=== PATIENT | male | born 1955 | race Caucasian/White ===

== ENCOUNTER 2018-10-29 12:39 | Outpatient (REF) | payer MEDICARE, SELFPAY ==
[2018-10-29 13:38] LABS: ALT 54 U/L (12-78); AST 23 U/L (15-37); Albumin 4.1 g/dL (3.4-5.0); Alkaline Phosphatase 62 U/L (46-116); Anion Gap 12.8 mmol/L (3-11); BUN 17 mg/dL (7-18); Bilirubin, Total 0.6 mg/dL (0.2-1.0); CO2 23.2 mmol/L (21.0-32.0); CREATININE 0.99 mg/dL (0.70-1.30); Calculated LDL 71 mg/dL; Chloride 103 mmol/L (98-107); Cholesterol 138 mg/dL (50-200); Glucose 158 mg/dL (70-100); HDL Cholesterol 46 mg/dL (40-60); Potassium 4.2 mmol/L (3.5-5.1); Sodium 139 mmol/L (136-145); Triglyceride 108 mg/dL (30-150)
[2018-10-29 14:00] LABS: Vitamin D 25 Total 41.9 ng/ml (30-100)
== END 2018-10-29 12:59 ==
LOC: NCHCN 12:39
PROVIDERS: PCP Family Medicine; Visit Provider Nurse Practitioner Family
DX: E78.5 Hyperlipidemia, unspecified (principal); I10 Essential (primary) hypertension; E55.9 Vitamin D deficiency, unspecified
CPT/HCPCS: 80053; 80061; 82306; 83721

== ENCOUNTER 2020-01-03 08:43 | Outpatient (REF) | payer MEDICARE, SELFPAY ==
[2020-01-03 19:24] LABS: Hemoglobin A1C 6.3 % (<5.7)
[2020-01-03 19:26] LABS: Anion Gap 10.2 mmol/L (3-11); BUN 14 mg/dL (7-18); CO2 25.8 mmol/L (21.0-32.0); CREATININE 0.95 mg/dL (0.70-1.30); Calcium 9.4 mg/dL (8.5-10.1); Calculated LDL 64 mg/dL (<100); Chloride 105 mmol/L (98-107); Cholesterol 122 mg/dL (<200); Glucose 158 mg/dL (74-106); HDL Cholesterol 48 mg/dL (40-60); Potassium 4.3 mmol/L (3.5-5.1); Sodium 141 mmol/L (136-145); Triglyceride 50 mg/dL (<150)
== END 2020-01-03 09:03 ==
LOC: NCHCN 08:43
PROVIDERS: PCP Family Medicine; Visit Provider Nurse Practitioner Family
DX: E11.9 Type 2 diabetes mellitus without complications (principal); I10 Essential (primary) hypertension; E78.5 Hyperlipidemia, unspecified
CPT/HCPCS: 80048; 80061; 83036

== ENCOUNTER 2021-04-22 10:43 | Outpatient (REF) | payer MEDICARE, SELFPAY ==
--- OUTSIDE RECORDS SUMMARY | 2021-04-22 10:44 | XMS_ITS ---
:1955 Author Care Team Providers Name Role Phone DYLAN GREEN JOSE MANUEL Primary Care Provider [phone] Allergies None recorded. Medications Name Status Start Date Stop Date ? ? atorvastatin 20 mg tablet Active ? Not av ailable DILT-XR 180 mg capsule, extended release Active ? Not available lisinopril 40 mg tablet Active ? Not avai lable metformin 500 mg tablet Active ? Not avai lable Problems Name Status Onset Date Source ? Obstructive Sleep Apnea Syndrome Active ? History Periodic Limb Movement Disorder Active ? History Procedures None recorded. Results Lab Results None recorded. Past Encounters None recorded. Social History Tobacco Smoking Status Never Smoker Vaccine List None recorded. Plan of Care Reminders Provider Appointments None ? ? recorded. Lab None ? ? recorded. Referral None ? ? recorded. Procedures None ? ? recorded. Surgeries None ? ? recorded. Imaging None ? ? recorded. Vitals 03/07/2019 01:45PM Office 30 Height Weight BMI Blood Pressure 182.88 cm 123.24 kg 36.8 kg/m2 124/72 mm[Hg] 05/19/2016 Height Weight Blood Pressure 180.34 cm 130.63 kg 136/84 mm[Hg] 02/25/2016 Height Weight Blood Pressure 180.34 cm 128.99 kg 138/80 mm[Hg]
[2021-04-22 14:01] LABS: Abs Immature Grans 0.03 10^3/uL (0.0-0.06); Absolute Basophil Count 0.02 10^3/uL (0.0-0.2); Absolute Eosinophil Count 0.19 10^3/uL (0.0-0.7); Absolute Lymphocyte Count 1.51 10^3/uL (1.2-3.4); Absolute Monocyte Count 0.67 10^3/uL (0.1-0.8); Absolute Neutrophil Count 4.15 10^3/uL (1.2-6.7); Basophils % 0.3; Eosinophils % 2.9; HCT 47.9 % (40.0-50.0); HGB 15.6 g/dL (13.5-17.5); Immature Grans % 0.5; MCH 29.1 pg (27.0-33.0); MCHC 32.6 % (32.0-36.0); MCV 89.4 fL (80-95); MPV 12.3 fL (8.0-11.0); Monocytes % 10.2; Neutrophils % 63.1; Nucleated RBC 0 %; Platelet Count 222 10^3/uL (130-400); RBC 5.36 10^6/uL (4.36-5.78); RDW 12.2 % (11.8-14.1); RDW-SD 39.8 fL; WBC 6.57 10^3/uL (4.4-10.8)
[2021-04-22 14:14] LABS: ALT 83 U/L (16-63); AST 41 U/L (15-37); Albumin 4.2 g/dL (3.4-5.0); Alkaline Phosphatase 67 U/L (46-116); Anion Gap 13.9 mmol/L (3-11); BUN 14 mg/dL (7-18); Bilirubin, Total 0.7 mg/dL (0.2-1.0); CO2 22.1 mmol/L (21.0-32.0); Calculated LDL 68 mg/dL (<100); Chloride 103 mmol/L (98-107); Cholesterol 127 mg/dL (<200); Glucose 199 mg/dL (74-106); HDL Cholesterol 46 mg/dL (40-60); Potassium 4.6 mmol/L (3.5-5.1); Sodium 139 mmol/L (136-145); Triglyceride 68 mg/dL (<150)
[2021-04-22 14:21] LABS: Hemoglobin A1C 7.3 % (<5.7)
== END 2021-04-22 10:44 | disposition home or self-care (01) ==
LOC: NCHCN 10:43
PROVIDERS: PCP Family Medicine; Visit Provider Nurse Practitioner Family
DX: I10 Essential (primary) hypertension (principal); E11.9 Type 2 diabetes mellitus without complications; E78.5 Hyperlipidemia, unspecified
CPT/HCPCS: 80053; 80061; 83036; 85025

== ENCOUNTER → 2022-02-01 13:22 | Outpatient (BNVA) | payer MEDICARE, SELFPAY | PROVIDERS: PCP Nurse Practitioner Family; Referring Provider Nurse Practitioner Family; Visit Provider Surgery | DX: Z12.11 Encounter for screening for malignant neoplasm of colon (principal); D12.6 Benign neoplasm of colon, unspecified | CPT/HCPCS: 99242 ==

== ENCOUNTER 2022-02-14 10:17 | Day surgery (SDC) | payer MEDICARE, SELFPAY ==
--- NOTE | 2022-02-14 06:41 | W.COLOREPORT ---
Date of service: 02/14/22 Time of Service: 12:03 Colonoscopy Report Date of procedure: 02/14/22 Pre-op diagnosis general: colon cancer screening Post-op diagnosis procedure note: other (polyps and mild diverticulosis) Procedure: Colonoscopy with polypectomy Surgeon: Lesvia De Luna Anesthesia Type: General:No Airway Estimated blood loss (mL): 3 Pathology: other (ascending, transverse, descending and sigmoid polyps) Complications: None Disposition: same day Indications: Pt seen at the request of PCP regarding colon cancer screening. Pt has? had colon cancer screening before.? They denies problems with constipation or diarrhea.? They deny any pain or difficulty with bowel movements, or rectal bleeding.? There is no family history of any colon cancer.? Pt has not had any unexplained weight loss.? Their appetite is good.? ?They deny heart, lung, or kidney problems. He has been having H/I since he started the [employer].? BS are still running high.? They have not had any prior colo-rectal surgery.? The patient? has not had a prior prostate Sx.? .? They deny any problems with anesthesia in the past. Prep: Miralax/Dulcolax Procedure Start Time: 12:03 Procedure End Time: 12:25 Retraction Time: 13 minutes Findings: 4 small polyps mild sigmoid diverticulosis Procedure Description: After informed consent was obtained the patient was taken to the procedure room and placed in a left decubitous position. Monitors were applied and a time out was done. The patients name, date of , procedure, allergies to medications and metal in their body was reviewed. The patient was then sedated. Once sedated and comfortable a rectal exam was done. External exam was normal. Internal exam revealed a normal sphincter tone and no palpable masses. I was unable to feel the prostate. The scope was then introduced and retro-flexed. No internal hemorrhoids, polyps or masses were identified on retro-flexion. The scope was then advanced to the cecum without difficulty. The ileocecal vlave and appendiceal orifice were identified. The prep was adequate. The scope was then slowly retracted over 13 minutes back into the rectum. Polyps were removed with cold forceps in the ascending, descending and sigmoid colon and with a cold snare in the Transverse colon. There was mild sigmoid diverticulosis noted. The scope was removed and the patient was woken up and taken back to Same day surgery in stable condition. The patient tolerated the procedure well and there were no immediate complications.
--- NOTE | 2022-02-14 06:42 | W.PM.DSUDISC ---
Date of service: 02/14/22 Time of Service: 12:03 Discharge Plan Disposition Patient Disposition: HOME Condition: Good Discharge Details Reason For Visit: Colon Cancer Screening Attending Provider: Lesvia De Luna Primary Care Provider: Rupa Amador Home Meds and New Rx's Prescriptions: Continued Januvia 100 mg tablet 100 mg PO DAILY sildenafil 100 mg tablet 100 mg PO DAILY PRN Rx Instructions: administer 30 minutes to 4 hours before activity metformin 500 mg tablet 1,000 mg PO BID diltiazem HCl [DILT-XR] 180 mg capsule,ext.rel 24h degradable 180 mg PO DAILY atorvastatin 20 mg tablet 20 mg PO QHS lisinopril 40 mg tablet 40 mg PO DAILY cholecalciferol (vitamin D3) 50 mcg (2,000 unit) capsule 50 mcg PO DAILY aspirin 81 mg tablet,delayed release (DR/EC) 81 mg PO DAILY Discontinued bisacodyl [Dulcolax (bisacodyl)] 5 mg tablet,delayed release (DR/EC) 5 mg PO ONCE Qty: 4 0RF Rx Instructions: Take according to provider's instructions for colonoscopy prep. polyethylene glycol 3350 17 gram/dose powder 17 g PO ONCE Qty: 238 0RF Rx Instructions: To be taken as directed by prescriber's office for colonoscopy prep. Discharge Instructions Instructions: Colorectal Polyps (DC), Diverticulosis (DC) Additional Instructions: Findings: mild diverticulosis 4 polyps Follow up: 3-5 years Please call if you develop: fevers >101.5 Nausea or Vomiting Abdominal pain that is not transient Rectal bleeding that is more then a tbsp A hard abdomen and inability to pass gas DAY SURGERY UNIT POST ENDOSCOPY INSTRUCTIONS Instructions for everyone who is given Anesthesia: For your safety, please do the following for the next 24 Hours: a. Do not drive or operate dangerous equipment b. Do not drink alcohol beverages or use any recreational drugs for the first 24 hours or while taking pain medications. The medications in your body may have a reaction that can be dangerous. c. Do not make any important decisions or sign any important papers 1. Generally there are no restrictions on your activity after a day or so has gone by, but you may feel a bit fatigued for a few days. 2. After you arrive home you may have a light meal and return to a normal diet as you can tolerate it without feeling sick to your stomach. 3. After surgery, you may feel pain or discomfort. This should be only transient, but if it persists please contact your doctor. 4. If there are any questions regarding the findings of your procedure, please feel free to contact your doctor. 6. If you are unable to contact your doctor with a problem, contact the hospital at [phone]. 7. Continue all your regular medications unless directed otherwise. I understand the above instructions and have no questions. Signature of Patient or Responsible Adult Escort Date/Time Name of Responsible Adult Escort Signature of Nurse Date/Time Activity:: Activity as Tolerated Equipment/Supplies:: No Equipment Needed Diet:: high fiber
[2022-02-14 11:22] VITALS: BP 143/77; PULSE 91; RESP 16; TEMP 36.6; O2SAT 96
[2022-02-14] MEDS: Lactated Ringers 1,000 ML 80 ML IV (11:40)
--- NOTE | 2022-02-14 11:49 | ANES.PREOP_ITS ---
General Info Date of Service Date Performed: 02/14/22 Height: 6 ft Weight: 123.2 kg Body Mass Index (BMI): 36.8 Surgical Procedure: Operation Date: 02/14/22 12:05 Proposed Procedure Side Surgeon easton De Luna MD Meds Allergies and Home Medications Allergies Allergy/AdvReac Type Severity Reaction Status Date / Time No Known Allergies Allergy Unverified 02/14/22 11:19 Home Medication Medication Instructions Recorded aspirin 81 mg tablet,delayed 81 mg PO DAILY 05/13/21 release atorvastatin 20 mg tablet 20 mg PO QHS 05/13/21 cholecalciferol (vitamin D3) 50 50 mcg PO DAILY 05/13/21 mcg (2,000 unit) capsule diltiazem HCl 180 mg 180 mg PO DAILY 05/13/21 capsule,extended release 24 hr, controlled (DILT-XR) lisinopril 40 mg tablet 40 mg PO DAILY 05/13/21 metformin 500 mg tablet 1,000 mg PO BID 05/13/21 bisacodyl 5 mg tablet,delayed 5 mg PO ONCE #4 tabs 02/01/22 release (Dulcolax (bisacodyl)) polyethylene glycol 3350 17 17 g PO ONCE #238 grams 02/01/22 gram/dose oral powder sildenafil 100 mg tablet 100 mg PO DAILY PRN 02/01/22 sitagliptin phosphate 100 mg 100 mg PO DAILY 02/01/22 tablet (Januvia) Current Visit Medications: Current Medications Generic Name Dose Route Start Last Admin Trade Name Freq PRN Reason Stop Dose Admin Hyoscyamine Sulfate 0.125 mg 02/14/22 06:42 Hyoscyamine 0.125 Mg Sl/Oral/Chew SL DIRECTED PRN Ringer's Solution 1,000 mls @ 80 mls/hr 02/14/22 06:00 02/14/22 11:40 IV 03/13/22 23:59 80 mls/hr INFUSION IZZY Administration IV Miscellaneous Supplies 1 each 02/14/22 06:00 Iv Access IV 03/13/22 23:59 DIRECTED IZZY Ondansetron HCl 4 mg 02/14/22 06:42 Ondansetron 4 Mg/2 Ml Vial IVP Q4H PRN PRN Nausea / Vomiting Sodium Chloride 0 ml 02/14/22 06:00 Normal Saline Flush 10 Ml Syr IV 03/13/22 23:59 PRN PRN Sodium Chloride 0 ml 02/14/22 06:00 Normal Saline 10 Ml Vial IJ 03/13/22 23:59 DIRECTED PRN Sterile Water 0 ml 02/14/22 06:00 Water,Injection,Sterile 10 Ml Vial IJ 03/13/22 23:59 DIRECTED PRN PFSH Active Problems Active Problems: Problem Status Onset Code Screening for colon cancer Z12.11 Hypertension I10 JARETH (obstructive sleep apnea) G47.33 Type 2 diabetes mellitus E11.9 Liver cirrhosis secondary to nonalcoholic steatohepatitis (WANG) K75.81, K74.60 Elevated LFTs R79.89 Medical History Medical History Hyperlipidemia Skin lesion Tubular adenoma of colon Vitamin D deficiency Surgical History Surgical History Hx of colonoscopy Tobacco Smoking/Tobacco Use Status: Never Alcohol Alcohol Intake: current Alcohol intake frequency: a few times a month Alcohol ty pe: beer Substance Use Substance use: Never Substance use type: does not use Vital Signs and Lab Results Vital Signs Most Recent Vital Signs in EMR: Most Recent Vital Signs Temp Pulse Resp BP Pulse Ox 36.6 C 91 H 16 143/77 H 96 02/14/22 11:22 02/14/22 11:22 02/14/22 11:22 02/14/22 11:22 02/14/22 11:22 Lab Results Blood Type / Crossmatch: No Data to Display Complete Blood Count: No Data to Display Complete Metabolic Panel: No Data to Display Liver Function Panel: No Data to Display Coagulation Panel: No Data to Display Cardiac Panel: No Data to Display Arterial Blood Gas: No Data to Display Venous Blood Gas: No Data to Display Pancreas Panel: No Data to Display Thyroid Panel: No Data to Display Infectious Disease: No Data to Display Blood Cultures: No Data to Display Toxicology Panel: No Data to Display Anesthesia Assessment and Plan Anesthesia History Personal History: No History of Anesthesia Complications Family History: No Family History of Anesthesia Complications Exercise Tolerance Exercise Tolerance: Metabolic Equivalents>4 Pertinent Negatives Pertinent Negatives: No Symptoms of GERD (Well controlled with medication ), No Major Cardiovascular Symptoms or Complaints, No Major Pulmonary Symptoms or Complaints (JARETH uses CPAP) and No History of CVA/TIA Cardiac & Pulmonary Exam Cardiac Exam: Normal S1/S2 Heart Sounds Pulmonary Exam: Clear Bilateral Breath Sounds Implantable Cardiac Device Does patient have a Pacemaker or an ICD?: No Airway Exam Known Difficult Airway: No Mallampati Class: 1 Mouth Opening: Normal (> 3cm) Thyromental Distance: Greater than 3 cm Neck Range of Motion: Full ROM Neck Circumference: Normal Teeth Condition: Normal Dentition Airway Comments: #21 rebuilt ASA Classification ASA Score: ASA 2 Emergency Case?: No NPO Status NPO Status: NPO Clears >2 hours, Solids >8 hours Anesthesia Plan Resuscitation Status: Full Code Anesthesia Technique: General Anesthesia Airway Planned: Natural Airway Monitors Used: Standard Monitors
[2022-02-14 11:53] VITALS: BMI 36.8
--- NOTE | 2022-02-14 12:05 | BOWEL_PTH ---
PATIENT: Bernardino Kaba LOC: [facility] U#:[id number] AGE/SX: 66/M ROOM: RE02/14/[address]: Lesvia De Luna MD : 1955 BED: DIS: 02/14/2022 SPEC #: [id number] RECD: 02/14/22 13:18 STATUS: SELENA RE #: [id number] KATE: 02/14/22 12:[address]: Lesvia De Luna DEPT: Surgical Specimen RECD BY: Mary Parra ENTERED: 02/14/22 13:19 SP TYPE: Bowel OTHR DR: Rupa Aamdor Tissues: 1 - BIOPSY BOWEL 2 - BIOPSY BOWEL 3 - BIOPSY BOWEL 4 - BIOPSY BOWEL Procedures: GROSS AND MICRO LEVEL 4 Comments: [id number]
[2022-02-14 12:35] VITALS: BP 96/63; PULSE 64; RESP 17; TEMP 36.5; O2SAT 94
--- NOTE | 2022-02-14 12:41 | W.ANESPOSTOP ---
Postoperative Evaluation Date, Time and Location Date Performed: 02/14/22 Time Performed: 12:41 Patient Location: Day Surgery Unit Vital Signs Most Recent Imported Vital Signs: Most Recent Vital Signs Temp Pulse Resp BP Pulse Ox 36.6 C 91 H 16 143/77 H 96 02/14/22 11:22 02/14/22 11:22 02/14/22 11:22 02/14/22 11:22 02/14/22 11:22 Most Recent Manually Entered Vital Signs: Adult Blood Pressure: 96/63 Heart Rate: 64 Respirations: 17 Oxygen Saturation (%): 95 Temperature (C): 36.8 C Pain Score (0-10 Scale): 0 Pain Score Most Recent Pain Score: Most Recent Pain Score Pain Level 0 02/14/22 11:22 Assessment Mental Status: Awake (Alert & Oriented to Patient Baseline) Airway and Respiratory Function: Patent airway with normal (patient baseline) respiratory exam Cardiovascular Function: Hemodynamically Stable Hydration Status: Adequately Hydrated Nausea & Vomiting: No Nausea or Vomiting Pain: Pt. Denies Any Pain Peripheral Nerve Block: Patient did not receive a nerve block
[2022-02-14 12:42] VITALS: BP 96/63; PULSE 64; RESP 17; TEMPC 36.8; O2SAT 95
[2022-02-14 13:15] VITALS: BP 119/61; PULSE 65; RESP 17; TEMP 36.5; O2SAT 97
== END 2022-02-14 13:15 | disposition home or self-care (01) ==
PROVIDERS: PCP Nurse Practitioner Family; Visit Provider Surgery
PROC: 0DJD8ZZ Inspection of Lower Intestinal Tract, Via Natural or Artificial Opening Endoscopic (ICD-10-PCS; CPT 45378; principal; 2022-02-14 12:00)
DX: Z12.11 Encounter for screening for malignant neoplasm of colon (principal); K63.5 Polyp of colon; K57.30 Diverticulosis of large intestine without perforation or abscess without bleeding
CPT/HCPCS: 45385; 45380; 88305

== ENCOUNTER → 2022-02-17 02:21 | Outpatient (CLI) | payer MEDICARE, SELFPAY ==
--- NOTE | 2022-02-17 06:45 | DI.US_ITS ---
Exam(s) US ABDOMEN LIMITED EXAM: US ABDOMEN LIMITED CLINICAL HISTORY: fatty liver/portal HTN,liver cirrhosis,diabetes,k75.81,k74.60,r79.89 TECHNIQUE: Ultrasound examination of the right upper quadrant was performed according to the usual p rotocol. COMPARISON: No exams were available for comparison FINDINGS: The liver is enlarged. Hepatic parenchyma shows increased echogenicity consistent with hepatic steat osis. No focal lesion identified. Portal venous flow is hepatopetal. No evidence of cholelithiasis. No biliary dilatation. Unremarkable appearance of the pancreas. Right kidney appears normal with no hydronephrosis or nephrolithiasis. Abdominal aorta and IVC are of normal diameter. IMPRESSION: Hepatomegaly and presumed hepatic steatosis. No other significant findings.. RADIATION DOSE DELIVERED: Total DLP
== END ==
PROVIDERS: PCP Nurse Practitioner Family; Visit Provider Surgery
DX: E11.9 Type 2 diabetes mellitus without complications (principal); E78.5 Hyperlipidemia, unspecified; G47.33 Obstructive sleep apnea (adult) (pediatric); I10 Essential (primary) hypertension; K74.60 Unspecified cirrhosis of liver; K75.81 Nonalcoholic steatohepatitis (NASH); R79.89 Other specified abnormal findings of blood chemistry; Z12.11 Encounter for screening for malignant neoplasm of colon; R16.0 Hepatomegaly, not elsewhere classified
CPT/HCPCS: 76705

== ENCOUNTER 2022-05-20 18:20 | Outpatient (REF) | payer MEDICARE, SELFPAY ==
[2022-05-20 15:01] LABS: Anion Gap 11.4 mmol/L (3-11); BUN 19 mg/dL (7-18); CO2 23.6 mmol/L (21.0-32.0); CREATININE 1.2 mg/dL (0.70-1.30); Calcium 9.5 mg/dL (8.5-10.1); Chloride 102 mmol/L (98-107); Estimated GFR 65.46 (mL/min/1.73m2); Glucose 308 mg/dL (74-106); Potassium 4.8 mmol/L (3.5-5.1); Sodium 137 mmol/L (136-145)
== END 2022-05-20 18:21 | disposition home or self-care (01) ==
LOC: NCHCN 18:20
PROVIDERS: PCP Nurse Practitioner Family; Visit Provider Nurse Practitioner Family
DX: I10 Essential (primary) hypertension (principal)
CPT/HCPCS: 80048

== ENCOUNTER 2023-02-20 15:15 | Outpatient (REF) | payer MEDICARE, SELFPAY ==
[2023-02-20 19:00] LABS: ALT 67 U/L (16-63); AST 41 U/L (15-37); Alkaline Phosphatase 75 U/L (46-116); Anion Gap 12.9 mmol/L (3-11); BUN 13 mg/dL (7-18); Bilirubin, Total 0.5 mg/dL (0.2-1.0); CO2 23.1 mmol/L (21.0-32.0); CREATININE 1.1 mg/dL (0.70-1.30); Calcium 9.1 mg/dL (8.5-10.1); Calculated LDL 55 mg/dL (<100); Chloride 101 mmol/L (98-107); Cholesterol 128 mg/dL (<200); Estimated GFR 72.67 (mL/min/1.73m2); Glucose 218 mg/dL (74-106); HDL Cholesterol 42 mg/dL (40-60); Potassium 3.9 mmol/L (3.5-5.1); Sodium 137 mmol/L (136-145); Triglyceride 157 mg/dL (<150)
[2023-02-20 20:08] LABS: Vitamin D 25 Total 44.5 ng/mL (30-100)
== END 2023-02-20 15:16 | disposition home or self-care (01) ==
LOC: NCHCN 15:15
PROVIDERS: PCP Nurse Practitioner Family; Visit Provider Nurse Practitioner Family
DX: E78.5 Hyperlipidemia, unspecified (principal); E11.9 Type 2 diabetes mellitus without complications; E55.9 Vitamin D deficiency, unspecified
CPT/HCPCS: 80053; 80061; 82306

== ENCOUNTER 2024-03-05 09:15 | Outpatient (REF) | payer MEDICARE, SELFPAY ==
[2024-03-05 17:00] LABS: ALT 65 U/L (16-63); AST 29 U/L (15-37); Albumin 4.2 g/dL (3.4-5.0); Alkaline Phosphatase 73 U/L (46-116); Anion Gap 12.7 mmol/L (3-11); BUN 13 mg/dL (7-18); Bilirubin, Total 0.73 mg/dL (0.2-1.0); CO2 23.3 mmol/L (21.0-32.0); CREATININE 1.1 mg/dL (0.70-1.30); Calcium 9.4 mg/dL (8.5-10.1); Chloride 105 mmol/L (98-107); Estimated GFR 72.22 (mL/min/1.73m2); Glucose 240 mg/dL (74-106); Potassium 4.6 mmol/L (3.5-5.1); Sodium 141 mmol/L (136-145); Total Protein 7.2 g/dL (6.4-8.2)
[2024-03-05 17:22] LABS: Hemoglobin A1C 7.5 % (<5.7)
== END 2024-03-05 09:16 | disposition home or self-care (01) ==
LOC: NCHCN 09:15
PROVIDERS: PCP Nurse Practitioner Family; Visit Provider Nurse Practitioner Family
DX: E11.9 Type 2 diabetes mellitus without complications (principal)
CPT/HCPCS: 80053; 83036

== ENCOUNTER → 2024-04-15 15:20 | Outpatient (BNVA) | payer MEDICARE, OTHER, SELFPAY | PROVIDERS: PCP Nurse Practitioner Family; Referring Provider Nurse Practitioner Family; Visit Provider Podiatrist | DX: L60.3 Nail dystrophy (principal); E11.9 Type 2 diabetes mellitus without complications; L60.0 Ingrowing nail; B35.1 Tinea unguium; R09.89 Other specified symptoms and signs involving the circulatory and respiratory systems; L60.2 Onychogryphosis; L60.8 Other nail disorders; M79.674 Pain in right toe(s) | CPT/HCPCS: 99214 ==

== ENCOUNTER 2024-06-24 12:11 | Outpatient (CLI) | payer MEDICARE, OTHER, SELFPAY ==
--- NOTE | 2024-06-24 | DI.RAD_ITS ---
Exam(s) XR WRIST LT COMPLETE EXAM: XR WRIST LT COMPLETE CLINICAL HISTORY: PAIN OF LEFT WRIST, M25.532. TECHNIQUE: 2D digital imaging was performed. Three views. COMPARISON: No exams were available for comparison FINDINGS: BONES: No acute fracture is present. No bony destructive lesion is seen. JOINTS: The carpal bones are normally aligned. [id number] narrowing of the 1st carpal metacar pal joint with periarticular spurring. No significant degenerative changes elsewhere. SOFT TISSUE: Normal. IMPRESSION: [id number] degenerative changes at the 1st carpal metacarpal joint. DATA REPOSITORY: RADIATION DOSE DELIVERED:
== END 2024-06-24 12:31 ==
LOC: DI 12:22
PROVIDERS: PCP Nurse Practitioner Family; Visit Provider Nurse Practitioner Family
DX: M25.532 Pain in left wrist (principal)
CPT/HCPCS: 73110

== ENCOUNTER → 2024-09-16 13:47 | Outpatient (BNVA) | payer MEDICARE, OTHER, SELFPAY | PROVIDERS: PCP Nurse Practitioner Family; Referring Provider Nurse Practitioner Family; Visit Provider Student in an Organized Health Care Education/Training Program | DX: M65.4 Radial styloid tenosynovitis [de Quervain] (principal) | CPT/HCPCS: 99213; 20550; J1010 ==

== ENCOUNTER 2024-09-18 21:37 | Outpatient (REF) | payer MEDICARE, OTHER, SELFPAY ==
[2024-09-18 17:46] LABS: COMMENT (LAB VIEW ONLY) 173.77 mg/dL; Microalb ug/mg Crea 48.4 ug/mg Cr
== END 2024-09-18 21:38 | disposition home or self-care (01) ==
LOC: NCHCN 21:37
PROVIDERS: PCP Nurse Practitioner Family; Visit Provider Nurse Practitioner Family
DX: E11.9 Type 2 diabetes mellitus without complications (principal)
CPT/HCPCS: 82043; 82570

== ENCOUNTER → 2024-10-14 13:48 | Outpatient (BNVA) | payer MEDICARE, OTHER, SELFPAY | PROVIDERS: PCP Nurse Practitioner Family; Referring Provider Nurse Practitioner Family; Visit Provider Podiatrist | DX: L60.3 Nail dystrophy (principal); E11.9 Type 2 diabetes mellitus without complications; L60.0 Ingrowing nail; B35.1 Tinea unguium | CPT/HCPCS: 99213 ==

== ENCOUNTER 2025-03-18 09:22 | Outpatient (REF) | payer MEDICARE, OTHER, SELFPAY ==
[2025-03-18 16:05] LABS: Hemoglobin A1C 6.2 % (<5.7)
[2025-03-18 16:15] LABS: ALT 59 U/L (10-49); AST 42 U/L (<34); Albumin 4.6 g/dL (3.2-5.0); Alkaline Phosphatase 63 U/L (46-116); Anion Gap 13.6 mmol/L (3-11); BUN 17 mg/dL (9-23); Bilirubin, Total 0.6 mg/dL (0.2-1.2); CO2 23.4 mmol/L (20.0-31.0); Calcium 9.1 mg/dL (8.3-10.6); Chloride 106 mmol/L (98-107); Cholesterol 144 mg/dL (<200); Glucose 171 mg/dL (74-106); HDL Cholesterol 49 mg/dL (>or=40); Potassium 4.4 mmol/L (3.5-5.1); Sodium 143 mmol/L (136-145); Total Protein 6.8 g/dL (5.7-8.2)
== END 2025-03-18 09:23 | disposition home or self-care (01) ==
LOC: NCHCN 09:22
PROVIDERS: PCP Nurse Practitioner Family; Visit Provider Nurse Practitioner Family
DX: E11.9 Type 2 diabetes mellitus without complications (principal); E78.5 Hyperlipidemia, unspecified
CPT/HCPCS: 80053; 80061; 83036